=== PATIENT | female | born 1990 | race Caucasian/White ===

== ENCOUNTER 2019-05-24 12:04 | Inpatient (IN) | payer OTHER ==
[2019-05-24] MEDS ORDERED: Lactated Ringers 1000 ML Bag* 1,000 ML IV ONE (12:48)
[2019-05-24] MEDS ORDERED: Buffered Lidocaine 1% SYRIN* 1 ML/SYRINGE INTRADERM ONE (12:48)
[2019-05-24] MEDS ORDERED: Misoprostol TAB* 100 MCG VAGINAL ONE (12:48)
[2019-05-24] MEDS ORDERED: Lactated Ringers 1000 ML Bag* 1,000 ML IV SCH (13:00)
[2019-05-24] MEDS ORDERED: Misoprostol TAB* 100 MCG ONE (13:05)
--- NOTE | 2019-05-24 13:23 | HP ---
General Information - Reason for Visit Cervical ripening/ IOL for postdates - General Information Maternal Age: 28 Grav: 1 Para: 0 SAB: 0 IEA: 0 Estimated Due Date: 05/16/19 Determined By: Early Ultrasound Gestational Age in Weeks/Days: 41 05/07 weeks Maternal Blood Type and Rh: AB Positive - Results this Serology/RPR Result: Non-Reactive Rubella Result: Immune HBsAg Result: Negative HIV Result: Negative GBS Culture Result: Negative Past Medical History Delivery History: See Records - Primigravida Pertinent Past Medical History: See Records - Hasimoto's thyroiditis ( levels all WNL without medication in ) Pertinent Past Surgical History: See Records - removal of bone spur left side of skull Pertinent Family History: See Records - HTN, stroke, Mickey's - Antepartal Records Antepartal Records: Reviewed, Complicated by: - postdates (05/07) Review of Systems Constitutional: Comfortable CV Complaint: No Respiratory: Shortness of Breath: No Gastrointestinal: No Nausea/Vomiting, Normal Bowel Movement Genitourinary: No Dysuria, No Bleeding, No Leaking Fluid Musculoskeletal: No Complaint, No Epigastric Pain Neurological: No Headache, No Visual Changes Movement: Decreased - Pt reports decreased FM last night and this morning , although still feeling some movement. Exam Allergies/Adverse Reactions: Allergies latex Allergy (Mild, Verified 05/24/19 12:39) Rash Patient states she was told she is allergic by a doctor after developing a rash from bandaids Vital Signs 05/24/19 12:16 Temperature 98.4 F Pulse Rate 103 Respiratory 20 Rate Blood Pressure 136/93 (mmHg) O2 Sat by Pulse 100 Oximetry - Measurements Height: 5 ft 10 in Weight: 71.214 kg Weight in lbs: 157.727282 Body Mass Index (BMI): 22.5 Pre- Weight: 56.245 kg Weight Gained This : 33 lbs and 0 ozs - Exam Breast: Breast Exam Deferred CVA: No CVA Tenderness Extremities: No Edema Heart: Normal Rhythm/Heart Sounds HEENT: No Significant Findings Lungs: Clear Bilaterally Rectal: Rectal Exam Deferred Reflexes: DTR 2+ Thyroid: No Thyromegaly - Abdominal Exam Abdomen Exam: Non-Tender, Fundal Height Consistent with Dates - Ultrasound/Biophysical Profile Ultrasound Status: Not Done Targeted Exam Findings See L&D Outpatient Visit Provider Note for Findings: N/A Estimated Weight: 7.5# Cervical Exam: 1cm - 1.5 Effacement: 70% Station: -2 Presenting Part: Vertex Membrane Status: Intact Bleeding/Discharge: None EFM Findings - External Monitor Findings Baseline Heart Rate: 150 External Monitor Findings: Accelerations Present, No Pattern of Variable or Late Decelerations, Variability Moderate, Baseline Stable Contractions: Irregular Contraction Frequency: occasional Assessment/Plan - Assessment 28 year old at 41 1/7 weeks gestation here for IOL for postdates . Rosa Score = 7. No evidence of acidemia, membranes intact. - Obstetrical Risk Factors Obstetrical Risk Factors: Post-Dates - Plan Plan: Cervical Ripening Plan Comment: Discussed options including cervical ripening with cervidil, misoprostol, and/ or Cook catheter vs trial of Pitocin. After extensive discussion of risks and benefits of each approach, decision made to do dose of vaginal misoprostol. - Date/Time of Admission Date of Admission: 05/24/19 Time of Admission: 12:45
--- NOTE | 2019-05-24 15:48 | PN ---
Progress Note - Progress Note Date of Service: 05/24/19 SOAP: Subjective: Pt reports feeling occasional ctx, comfortable for the most part. at bedside, supportive. Objective: Called to L&D to assess FHR tracing. Since placement of vaginal misoprostol, FHR had exhibited elevation in baseline/ possible prolonged accelerations. FHR then settles back to 150 with moderate variability/ + accels/ but had two clear late decels following run of small ctx without return to baseline tone in between. Current FHR: baseline 150/ moderate varability/ + accels/ no current decels UCs: now resolving into pattern of every 3 minutes, was irregular, having runs of closely spaced ctx BP: 128/82 Assessment: Currently Category I FHR< had periods of Category II. Appears to be developing regular ctx pattern. Pt still comfortable. Plan: IV access established and fluid bolus administered. Will continue to monitor FHR until Category I for prolonged period of time. Will recheck Cervix in an hour or so or as needed. Will base plan for further ripening/ IOL on exam, ctx [ pattern, and FHR tracing.
[2019-05-24 16:31] LABS: ABS Lymphocytes 1.6 10^3/ul (1.0-4.8); ABS Monocytes 0.8 10^3/ul (0-0.8); ABS Neutrophils 7.4 10^3/ul (1.5-7.7); Eosinophil % 0.4 %; Hematocrit 37 % (35-47); Hemoglobin 13.3 g/dL (12.0-16.0); Lymphocyte % 16.2 %; Mean Corpuscular HGB Conc 36 g/dL (31-36); Mean Corpuscular Hemoglobin 36 pg (27-31); Mean Corpuscular Volume 101 fL (80-97); Mean Platelet Volume 10.2 fL (7.4-10.4); Platelet Count 202 10^3/uL (150-450); Red Blood Count 3.72 10^6 /uL (3.70-4.87); Red Cell Distribution Width 13 % (10-15); White Blood Count 9.9 10^3/uL (3.5-10.8)
--- NOTE | 2019-05-24 17:43 | PN ---
Progress Note - Progress Note Date of Service: 05/24/19 SOAP: Subjective: Pt reports ctx feeling stronger and more regular, still able to talk through them. Feeling nervous about labor, status. Objective: FHR: Baseline 140/ moderate variability/ + accels/ no decels UCs: mild, 1-3 minutes Cervical exam deferred BP- 128/82 Assessment: Pt continues to contract, still does not appear to be in active labor. Currently no evidence of acidemia. Plan: Expectant management for now to see if UCs build or fade out. Will recheck cervix in 1-2 hours. Intermittent EFM at this time, but will do NST hourly for now.
--- NOTE | 2019-05-24 19:16 | PN ---
Progress Note - Progress Note Date of Service: 05/24/19 SOAP: Subjective: Pt reports continued ctx, slightly more uncomfortable. Objective: BP: 142/88 Temp:98.5 FHR: Baseline 145/ moderate variability/ no accels, no decels UCs:2-3 minutes, 40-60 seconds Denies headache, vision changes Cervix: 2cm/ 80%/ -1/ vtx Assessment: Pt still not in active labor, but may be progressing in that direction. Cervical change noted post one dose of misoprostol. Kaylee too frequently for further cervical ripening at this time. FHR currently Category I. Elevated BPs, gestational HTN vs preeclampsia vs elevated in response to stress and discomfort. Plan: Will draw CMP, uric acid, check urine protein. Continue to monitor BPs. Discussed plan for proceeding with IOL with pt and . She would like to see what current ctx pattern evolves into before starting Pitocin. Too many UCs to do further ripening at this time. Will encourage rest, monitor intermittently once reactive FHR tracing has been obtained, and observe for progression to active labor. If progression to active labor does not ensue, likely will be Pitocin IOL in the morning.
[2019-05-24 19:56] LABS: Urine Appearance Cloudy; Urine Bilirubin Negative (Negative); Urine Blood Negative (Negative); Urine Color Yellow; Urine Glucose Negative (Negative); Urine Ketones Negative (Negative); Urine Nitrite Negative (Negative); Urine Protein Negative (Negative); Urine Specific Gravity 1.005 (1.010-1.030); Urine Urobilinogen Negative (Negative)
[2019-05-24 20:06] LABS: Albumin 3.5 g/dL (3.2-5.2); Albumin/Globulin Ratio 1.4 (1-3); BUN/Creatinine Ratio 11.3 (8-20); EGFR African American 136.8 (>60); Globulin 2.5 g/dL (2-4); Potassium 3.6 mmol/L (3.5-5.0); Total Bilirubin 0.4 mg/dL (0.2-1.0); Uric Acid 5.2 mg/dL (2.3-6.6); Urine Benzodiazepine Screen None Detected (None Detect); Urine Opiates Screen None Detected (None Detect)
--- NOTE | 2019-05-24 23:38 | PN ---
Progress Note - Progress Note Date of Service: 05/24/19 SOAP: Subjective: Pt uncomfortable with ctx, coping well. Spent some time in the tub. Got out for cervical exam and NST. Experienced membrane rupture while in bed to clear fluid, with bloody show. Now back in tub. and private wealth advisor at bedside. Objective: FHR: Baseline 135/ moderate variability/ + accels/ no decels UCs: 2-3 minutes Cervix: 5 cm/ 100%/ 0 station Fluid clear, bloody show BP: 134/86 Temp: 98.9 Labs WNL, UA negative for protein Assessment: Pt in active labor, coping well. No evidence of acidemia or chorioamnionitis. Plan: Expectant management. Intermittent EFM. Pain relief if desired. Labor support and comfort measures.
--- NOTE | 2019-05-25 00:05 | PN ---
Progress Note - Progress Note Date of Service: 05/25/19 Note: Pt requested cervical exam, feeling urge to push. Cervix: 8 cm/ 100%/ +1. FHR 140 per doppler. Lots of bloody show. Pt making good progress. No evidence of acidemia. Anticipate progression to full dilation and .
[2019-05-25] MEDS ORDERED: Oxytocin in LR* 20 UNITS/1,000 ML BAG IVPB ONE (01:23)
[2019-05-25] MEDS ORDERED: OXYTOCIN* 10 UNITS/ML 1 ML VIAL IM ONE (02:20)
[2019-05-25] MEDS ORDERED: Glycerin ADULT SUPP PR PRN (02:20)
[2019-05-25] MEDS ORDERED: Acetaminophen TAB* 325 MG PO PRN (02:20)
[2019-05-25] MEDS ORDERED: Methylergonovine INJ* 0.2 MG/ML 1ML AMP ONE (02:34)
[2019-05-25] MEDS ORDERED: Methylergonovine INJ* 0.2 MG/ML 1ML AMP IM ONE (02:37)
--- NOTE | 2019-05-25 02:49 | PROCNOTE ---
[facility] OB: Delivery Note - Delivery A Date of : 05/25/19 Time of : 01:14 Shepherd Sex: Female Weight at : 3.695 kg Score 1 Minute: 9 Score 5 Minutes: 9 Gestational Age in Weeks and Days at Delivery: 41 Weeks and 2 Days Delivery Method: Spontaneous Vaginal Labor: Induced Did Patient attempt ?: N/A, No Previous Amniotic Fluid: Clear Estimated Blood Loss: 500 Anesthesia/Analgesia: None Delivered By: Brittany Aguilar Nursery Level of Nursery: Regular/Bedside - Perineum Perineal Injury: Abrasion Only - Not Repaired Perineal Repair: None - Events Delivery Events of Note: Pitocin Only After Delivery, Post- Bleeding - Meds Given - Additional Delivery Notes Additional Delivery Notes: Pt admitted to L&D at 41 1/7 weeks gestation for postdates induction of labor. Single dose of vaginal misoprostol led to onset active labor. Pt made steady progress, utilized tub, breathing and positioning for pain management. Pt progressed to full dilation and spontaneous pushing efforts. Pt pushed with good effort and steady descent. Pt brought to and was coached through slow, controlled delivery of the head. Compound hand noted. Shoulders followed without difficulty. Infant placed on maternal abdomen, dried and bulb suctioned for copious secretions, with vigorous cry and good tone. HR> 100. Placenta soon delivered with gentle cord traction, mireya side. Following delivery of the placenta Pitocin administered IM as pt's IV had stopped functioning. Bleeding improved at that time. About 1.5 hours after delivery pt had saturated pad and boggy uterus. Methergine administered IM with good improvement in bleeding. Will closely monitor. Mother and baby stable at this time, anticipate normal course.
[2019-05-25] MEDS ORDERED: Lactated Ringers 1000 ML Bag* 1,000 ML IV SCH (03:00)
[2019-05-25] MEDS ORDERED: Ammonia Inhalant* 1 EA AMP ONE (03:32)
[2019-05-25] MEDS: Ibuprofen TAB* 600 MG PO PRN ×3 (04:40→18:09)
[2019-05-25] MEDS ORDERED: Oxytocin in LR* 20 UNITS/1,000 ML BAG IVPB SCH (05:00)
[2019-05-25] MEDS: Docusate CAP* 100 MG PO SCH ×2 (12:33→14:00)
--- NOTE | 2019-05-25 16:32 | PTEDU ---
Patient Name: JERSON SALDIVAR JERSON SALDIVAR selected video: BBOB: Nurturing Your Gorgeous &Growing Baby by to view on 05/25/2019 at 4:31:39 PM from [id number]
[2019-05-25] MEDS: Witch Hazel PAD* JAR TOPICAL PRN (22:03)
[2019-05-25] MEDS: Dibucaine 1% 28.35 GM TUBE PR PRN (22:03)
[2019-05-26] MEDS: Ibuprofen TAB* 600 MG PO PRN ×2 (04:16→15:34)
[2019-05-26] MEDS: Docusate CAP* 100 MG PO SCH ×4 (05:58→21:15)
[2019-05-26 07:38] LABS: ABS Basophils 0.1 10^3/ul (0-0.2); ABS Eosinophils 0.1 10^3/ul (0-0.6); ABS Lymphocytes 2.4 10^3/ul (1.0-4.8); ABS Monocytes 0.8 10^3/ul (0-0.8); ABS Neutrophils 10.4 10^3/ul (1.5-7.7); Eosinophil % 0.8 %; Hematocrit 30 % (35-47); Hemoglobin 10.5 g/dL (12.0-16.0); Lymphocyte % 17.3 %; Mean Corpuscular HGB Conc 36 g/dL (31-36); Mean Corpuscular Hemoglobin 36 pg (27-31); Mean Corpuscular Volume 101 fL (80-97); Mean Platelet Volume 9.4 fL (7.4-10.4); Platelet Count 159 10^3/uL (150-450); Red Blood Count 2.93 10^6 /uL (3.70-4.87); Red Cell Distribution Width 13 % (10-15); White Blood Count 13.8 10^3/uL (3.5-10.8)
[2019-05-26] MEDS: Ferrous Gluconate TAB* 324 MG TAB PO SCH ×2 (11:56→21:15)
[2019-05-27] MEDS: Dibucaine 1% 28.35 GM TUBE PR PRN (03:05)
[2019-05-27] MEDS: Witch Hazel PAD* JAR TOPICAL PRN (03:05)
[2019-05-27] MEDS: Ibuprofen TAB* 600 MG PO PRN ×2 (03:26→09:49)
[2019-05-27 08:18] VITALS: BP 130/80
--- NOTE | 2019-05-27 08:51 | PTEDU ---
Patient Name: JERSON SALDIVAR JERSON SALDIVAR selected video: Follow Me Mum: The Long to Successful to view on 2019 at 8:50:38 AM [id number]
[2019-05-27] MEDS: Docusate CAP* 100 MG PO SCH (09:49)
--- NOTE | 2019-05-27 11:10 | PTEDU ---
Patient Name: JERSON SALDIVAR JERSON SALDIVAR selected video: Follow Me Mum: The Long to Successful to view on 2019 at 11:09:33 AM [id number]
== END 2019-05-27 13:43 | disposition home or self-care (01) | DRG 806 ==
LOC: MCHOBOUT 12:04 → MCHOB 12:45
PROVIDERS: ADMIT Midwife; ATTEND Midwife
PROC: 4A1HXCZ Monitoring of Products of Conception, Cardiac Rate, External Approach (ICD-10-PCS; 2019-05-24)
PROC: 3E0P7VZ Introduction of Hormone into Female Reproductive, Via Natural or Artificial Opening (ICD-10-PCS; 2019-05-24)
PROC: 10E0XZZ Delivery of Products of Conception, External Approach (ICD-10-PCS; principal; 2019-05-25)
DX: O48.0 Post-term pregnancy (principal); O72.1 Other immediate postpartum hemorrhage; Z37.0 Single live birth; O32.6XX0 Maternal care for compound presentation, not applicable or unspecified; O76 Abnormality in fetal heart rate and rhythm complicating labor and delivery; O71.82 Other specified trauma to perineum and vulva; R03.0 Elevated blood-pressure reading, without diagnosis of hypertension; Z3A.40 40 weeks gestation of pregnancy; Z91.040 Latex allergy status
CPT/HCPCS: 36415; 80053; 80307; 81003; 84550; 85025; 86850; 86900; 86901; A9270-GY; G0480; J2210; S0191